=== PATIENT | female | born 1960 | race Caucasian/White ===

== ENCOUNTER 2019-01-17 16:00 | Outpatient (CLI) | payer BC | END 2019-01-17 16:01 | disposition home or self-care (01) | LOC: SLEEPLAB 16:00 | PROVIDERS: ATTEND Internal Medicine | DX: G47.33 Obstructive sleep apnea (adult) (pediatric) (principal); I10 Essential (primary) hypertension; E66.9 Obesity, unspecified; R35.1 Nocturia; R53.83 Other fatigue; R06.83 Snoring; R40.0 Somnolence; Z68.42 Body mass index [BMI] 45.0-49.9, adult | CPT/HCPCS: 95806 ==

== ENCOUNTER 2019-01-29 13:33 | Outpatient (CLI) | payer BC ==
--- NOTE | 2019-01-29 14:55 | MMO ---
Bilateral MAMMO Bilat Screen [facility]. CLINICAL HISTORY: Patient is 58 years old and is seen for screening. The patient has no family history of breast cancer. The patient has no personal history of cancer. VIEWS: The views performed were: bilateral craniocaudal with tomosynthesis; bilateral mediolateral oblique with tomosynthesis; and cleavage view. FILMS COMPARED: The present examination has been compared to prior imaging studies performed at [facility] on 01/11/2014, 01/15/2015, 01/23/2016 and 01/25/2017. MAMMOGRAM FINDINGS: The breasts are almost entirely fat. There are no suspicious masses, suspicious calcifications, or new areas of architectural distortion. IMPRESSION: THERE IS NO MAMMOGRAPHIC EVIDENCE OF MALIGNANCY. A ROUTINE FOLLOW-UP MAMMOGRAM IN 1 YEAR IS RECOMMENDED. THE RESULTS OF THIS EXAM WERE SENT TO THE PATIENT. ACR BI-RADS Category 1 - Negative MAMMOGRAPHY NOTE: 1. A negative mammogram report should not delay a biopsy if a dominant of clinically suspicious mass is present. 2. Approximately 10% to 15% of breast cancers are not detected by mammography. 3. Adenosis and dense breasts may obscure an underlying neoplasm. Reported by: Janett YANEZ Electonically Signed: [id number]
--- NOTE | 2019-01-29 15:25 | ULT ---
TRANSABDOMINAL AND TRANSVAGINAL PELVIC ULTRASOUND: Date: 01/29/19 HISTORY: Other specific noninflammatory disorders of vagina. FINDINGS: Exam limited by body habitus. The uterus measures 6.8 x 4.4 x 4.1 cm. There is a 2.0 x 2.3 x 2.1 cm mass in the posterior uterus, l ikely fibroid. The endometrium measures 7.0 mm in thickness. No endometrial fluid is seen. The ovaries are not visualized on either side. No adnexal mass is seen. No free fluid is noted. There is thickening of the internal cervical region. IMPRESSION: 1. Probable uterine fibroid. 2. Thickened cervical region close to the internal os. Mass cannot be excluded. POS: JAYME
== END 2019-01-29 13:34 | disposition home or self-care (01) ==
LOC: BICMAMMO 13:33
PROVIDERS: ATTEND Specialist
DX: Z12.31 Encounter for screening mammogram for malignant neoplasm of breast (principal); N89.8 Other specified noninflammatory disorders of vagina; N88.8 Other specified noninflammatory disorders of cervix uteri
CPT/HCPCS: 76856; 77063; 77067

== ENCOUNTER 2020-05-26 07:51 | Outpatient (CLI) | payer BC ==
--- NOTE | 2020-05-26 08:52 | CT ---
CT Abdomen Pelvis W Con HISTORY: Abdominal pain, left lower quadrant pain COMPARISON: None. FINDINGS: The lung bases are unremarkable. There is 8 mm low-density lesion in the left lobe of the liver and a 5 mm low-density lesion in the right lobe of the liver, too small to characterize. A 5 mm low dense lesion is seen in the superior pole of the right kidney also too small to characterize. These f indings are statistically likely to represent benign findings such as cysts. The spleen, pancreas, adrenal glands and left kidney appear normal. The aorta is of normal caliber. U terus and ovaries are present. There are degenerative changes in the spine. The small bowel loops are not abnormally dilated. There is colonic diverticulosis without pericolonic inflammatory changes or abnormally loculated fluid collections. IMPRESSION: Colonic diverticulosis without evidence of diverticulitis or abscess formation.
[2020-05-26] MEDS ORDERED: Iopamidol-370 76% 500 ML 1 ML ONE (12:12)
== END 2020-05-26 07:52 | disposition home or self-care (01) ==
LOC: BICCT 07:51
PROVIDERS: ATTEND Specialist
DX: R10.30 Lower abdominal pain, unspecified (principal); D25.9 Leiomyoma of uterus, unspecified; K57.30 Diverticulosis of large intestine without perforation or abscess without bleeding
CPT/HCPCS: 74177

== ENCOUNTER 2025-02-27 11:52 | Outpatient (CLI) | payer BC | END 2025-02-27 11:53 | disposition home or self-care (01) | LOC: BICRAD 11:52 | PROVIDERS: ATTEND Specialist | DX: M25.552 Pain in left hip (principal); R10.2 Pelvic and perineal pain; W19.XXXA Unspecified fall, initial encounter | CPT/HCPCS: 72170 ==

== ENCOUNTER 2025-04-03 14:59 | Outpatient (CLI) | payer BC | END 2025-04-03 15:00 | disposition home or self-care (01) | LOC: BICMRI 14:59 | PROVIDERS: ATTEND Specialist | DX: M25.552 Pain in left hip (principal); M76.02 Gluteal tendinitis, left hip; M70.62 Trochanteric bursitis, left hip; M76.9 Unspecified enthesopathy, lower limb, excluding foot; S73.102A Unspecified sprain of left hip, initial encounter; S76.012A Strain of muscle, fascia and tendon of left hip, initial encounter; W10.9XXA Fall (on) (from) unspecified stairs and steps, initial encounter ==